=== PATIENT | female | born 1970 | race Caucasian/White ===

== ENCOUNTER → 2016-12-04 | Outpatient (CLI) | payer BC, OTHER ==
[~2016-12-04] MED LIST: ASPI-391 PO; B-COTAB18 PO; MTR600X PO; OXYC-57 PO; RANI150T3 PO
== END | disposition home or self-care (01) ==
LOC: C.PATHSPEC 17:33
PROVIDERS: ATTEND Obstetrics & Gynecology
DX: R93.8 Abnormal findings on diagnostic imaging of other specified body structures (principal)

== ENCOUNTER 2017-01-30 05:40 | Observation (INO) | payer BC ==
[2017-01-13 11:37] VITALS: BMI 44.0
[2017-01-13 11:59] LABS: BASO % 0.6 %; BASO ABS # 0.04 K/uL (0-0.2); COMPLETE YES; EOS % 4.1 %; HEMATOCRIT 38.9 % (37-47); IG% 0.2 %; LYMPH % 22.2 %; MEAN CELL VOLUME 82.4 fL (80-100); MEAN CORPUSCULAR HEMOGLOBIN 26.9 pg (25-34); MEAN CORPUSCULAR HGB CONC 32.6 g/dl (32-36); MEAN PLATELET VOLUME 9.1 fL (7.4-10.4); MONO % 7.6 %; NEUT % 65.3 %; PLATELET COUNT 340 K/uL (130-400); RED BLOOD COUNT 4.72 M/uL (4.2-5.4); WHITE BLOOD COUNT 6.31 K/uL (4.8-10.8)
--- NOTE | 2017-01-13 12:00 | PAT Medication Instructions ---
Service Date January 13, 2017. Current Home Medication List Zptboak-Ckojclwobiryy-Kijegqff (Excedrin Extra Strength), 2 TAB PO prn B-Complex Vitamins (Vitamin B Complex), 1 TAB PO QAM Ranitidine Hcl (Zantac), 150 MG PO PRN Medication Instructions For Your Scheduled Surgery Qllwboy-Ifoeezkrenqvr-Aqdffsgn (Excedrin Extra Strength), 2 TAB PO prn (patient will check with surgeon for instructions) - Hold the following medications the morning of surgery: B-Complex Vitamins (Vitamin B Complex), 1 TAB PO QAM - Take the following medications the morning of surgery with a sip of water: Ranitidine Hcl (Zantac), 150 MG PO PRN If you have any questions please call us at [phone] or [phone] ( Rachelle) or [phone]
[2017-01-13 13:27] LABS: BUN/CREATININE RATIO 13.9 (10-20); CALCIUM 8.9 mg/dl (8.5-10.1); CREATININE 0.82 mg/dl (0.60-1.20); POTASSIUM 4.1 mmol/L (3.5-5.1)
[2017-01-30] VITALS (8 sets, daily range): BP systolic 110–178; BP diastolic 66–86; PULSE 72–100; TEMP 36.2–37.1; O2SAT 92–99; Ht 165.1 cm; Wt 120.2 kg
[~2017-01-30] VITALS: Ht 165.1 cm; Wt 120.2 kg
[~2017-01-30 05:40] MED LIST changes: -MTR600X PO; -OXYC-57 PO
[2017-01-30] MEDS ORDERED: CEFAZOLIN 3000 MG/65 ML D5W 50 ML IV SCH (06:00)
[2017-01-30] MEDS ORDERED: LACTATED RINGER'S 1000ML 1,000 ML IV SCH ×3 (06:00→13:00)
[2017-01-30] MEDS ORDERED: MIDAZOLAM HCL 1 MG/ML 2ML VIAL ONE (06:58)
[2017-01-30] MEDS ORDERED: HYDROmorphone INJ 2 MG/ML SYR/VIAL ONE (06:58)
[2017-01-30] MEDS ORDERED: KETAMINE HCL INJ 50 MG/ML 10 ML VIAL ONE (06:58)
[2017-01-30] MEDS ORDERED: FENTANYL CITRATE INJ 50 MCG/1 ML 2 ML VIAL ONE (06:58)
--- NOTE | 2017-01-30 07:03 | History & Physical Bridge Note ---
H&P Re-Evaluation Bridge Note: I have examined the patient, reviewed the History & Physical and in the interval since the performance of the History & Physical I have noted the following changes of clinical significance: No changes noted
[2017-01-30] MEDS ORDERED: METHYLENE BLUE 0.5% 10 ML VIAL ONE (07:15)
[2017-01-30] MEDS ORDERED: BUPIVACAINE 0.5 % 5 MG/1 ML MPF 30ML VIAL ONE (07:15)
[2017-01-30 07:30] LABS: PREG INTERNAL NEGATIVE QC NEG CLEAR BACKGROUND; PREG INTERNAL POSITIVE QC POS CONTROL LINE
[2017-01-30] MEDS ORDERED: ONDANSETRON INJ 2 MG/ML 2 ML VIAL ONE ×2 (08:53→10:10)
[2017-01-30] MEDS ORDERED: PHENYLEPHRINE 100MCG/ML 5ML SYR ONE (08:53)
[2017-01-30] MEDS ORDERED: NEOSTIGMINE METHYLSULFATE 5 MG/5 ML SYR ONE (08:53)
[2017-01-30] MEDS ORDERED: DEXAMETHASONE SOD INJ 4 MG/ML VIAL ONE (08:53)
[2017-01-30] MEDS ORDERED: SUCCINYLCHOLINE 100MG/5ML SYR IV ONE (08:53)
[2017-01-30] MEDS ORDERED: CISATRACURIUM BESYLATE IV SOLN 2 MG/ML 10 ML VIAL ONE (08:53)
[2017-01-30] MEDS ORDERED: PROPOFOL IV EMULSION 10 MG/ML 20 ML VIAL IV ONE (08:53)
[2017-01-30] MEDS ORDERED: GLYCOPYRROLATE INJ 0.2 MG/ML VIAL ONE (08:53)
[2017-01-30] MEDS ORDERED: SODIUM CHLORIDE 0.9% INJ 10 ML VIAL ONE (08:54)
--- NOTE | 2017-01-30 10:11 | [facility] Post Operative Brief Note ---
Immediate Operative Summary Operative Date January 30, 2017. Pre-Operative Diagnosis Abnormal menses enlarged uterus thickened endometrium Post-Operative Diagnosis Same as preop Procedure(s) Performed Robotic-assisted Total Laparoscopic Hysterectomy, Bilateral Salpingo-oophorectomy, cystoscopy Surgeon Dr. Cobb [place] Press Operator Surgeon(s) none Estimated Blood Loss 70 cc Findings Enlarged uterus Specimens A: uterus, cervix, bilateral fallopian tubes and ovaries Drains Caruso Anesthesia General Complication(s) None Disposition Recovery Room / PACU
--- NOTE | 2017-01-30 10:12 | Discharge Instructions ---
Discharge Instructions Date of Service January 30, 2017. Admission Reason for Admission: Abnormal Menses, Enlarged Uterus Discharge Discharge Diagnosis / Problem: Menorrhagia Discharge Goals Goal(s): Routine recovery after surgery Activity Recommendations Activity Limitations: per Instructions/Follow-up section . Instructions / Follow-Up Instructions / Follow-Up POST OPERATIVE: BOWEL FUNCTION/MEDICATIONS: 1. Constipation pain and discomfort are the most common complaints 5-7 days after surgery. Points 2-6 address the things that can help. 2. Chewing gum can help stimulate the gut and help improve digestion and motility. 3. Milk of Magnesia 1-2 times per day until return of bowel function. 4. Colace is a stool softener that helps. Taking this 2-3 times per day until bowel function returns to normal is highly recommended. 5. Dulcolax is a laxative that may be used if several days have passed without a bowel movement. Alternatively Miralax may be used daily instead. 6. Drink plenty of fluids as this will also reduce constipation. 7. Narcotic pain medications will be prescribed by your physician. They are safe to use and we encourage you to use them. If you are not allergic, ibuprofen will also be prescribed. Many patients will be able to transition off of the narcotic medications to ibuprofen by postoperative day 3. ACTIVITY RECOMMENDATIONS: 1. Get plenty of rest and listen to your body. If you are tired, take a nap. 2. You may shower, but do not take a tub bath until you see your doctor at the 2 week post operative visit. 3. Absolutely NO intercourse and nothing in the vagina until you are examined by your doctor at the 6 week visit. At that visit it will be determined when such activities can be resumed. This can range from 6-12 weeks after your surgery depending on healing time. 4. The main physical activity in the first week should be walking. By the second week you can slowly increase activity. There are no limits on walking up and down stairs. 5. Do not lift more than 5-10 lbs for 4 weeks. Remember the "one-handed rule", i.e. if you can lift something with only one hand it's likely okay. 6. Minimize photocomposing keyboard operator like vacuuming and exercising for 4 weeks. "Overdoing it" can lead to incisions not healing, pain and vaginal bleeding , so again, listen to your body. 7. Driving can be resumed when you feel able. Do not drive within 24 hours of taking a narcotic medication. EXPECTATIONS: 1. Vaginal spotting, bleeding and discharge are common after surgery. There may even be an odor to the discharge which is often related to sutures used in the vagina. If you experience heavy vaginal bleeding, call the office number day or night [phone]. 2. Bladder discomfort is common after surgery from the catheter. This usually resolves in 1-2 weeks. 3. By the end of the 3rd or 4th week you should be feeling much better. It may take up to 6 weeks for your energy levels to return to normal. 4. Narcotic medications have side effects such as: dizziness, headache, nausea and/or vomiting. If you suspect your pain medication is causing problems, call our office and we may be able to prescribe an alternate medication. 5. The skin incisions are often covered with a liquid bandage. This will gradually peel off over time. CALL THE OFFICE IF YOU HAVE ANY OF THE FOLLOWIN. Temperature of 101 degrees or higher. 2. Severe abdominal or pelvic pain not relieved by pain medication. 3. Persistent nausea or vomiting. 4. Increased pain with urination or difficulty urinating. 5. Bright red bleeding that soaks more than 1 pad per hour. CONTACT PHONE NUMBERS: Main Office: [phone] Surgical Nurse: [phone] extension [phone] Avoid all tobacco products. If you need help to stop smoking, call [place] FREE QUITLINE at . This is a free call. Current Hospital Diet Patient's current hospital diet: Discharge Diet Recommended Diet: Regular Diet Procedures Procedures Performed: Robotic-assisted Total Laparoscopic Hysterectomy, Bilateral Salpingo-oophorectomy, cystoscopy Pending Studies Studies pending at discharge: no Medical Emergencies . Who to Call and When: Medical Emergencies: If at any time you feel your situation is an emergency, please call 911 immediately. . Non-Emergent Contact Non-Emergency issues call your: Diesel Engine Operator . . "Provider Documentation" section prepared by Maldonado Cobb. . VTE Core Measure Inpt VTE Proph given/why not?: Izzy Dumas, KINJAL's
[2017-01-30] MEDS ORDERED: OXYC-57 PO (10:13)
[2017-01-30] MEDS ORDERED: MTR600X PO (10:13)
[2017-01-30] MEDS ORDERED: IBUPROFEN 600 MG TAB PO PRN (10:15)
[2017-01-30] MEDS ORDERED: KETOROLAC TROMETHAMINE 30 MG/ML VIAL IV. PRN (10:15)
[2017-01-30] MEDS ORDERED: ZOLPIDEM TARTRATE 5 MG TAB PO PRN (10:15)
[2017-01-30] MEDS ORDERED: ONDANSETRON INJ 2 MG/ML 2 ML VIAL IV PRN ×2 (10:15→10:30)
[2017-01-30] MEDS ORDERED: ACETAMINOPHEN 325 MG TAB PO PRN (10:15)
[2017-01-30] MEDS ORDERED: BISACODYL 10 MG SUPP PR PRN (10:15)
[2017-01-30] MEDS ORDERED: MAGNESIUM HYDROXIDE SUSP 30 ML UDC PO PRN (10:15)
[2017-01-30] MEDS ORDERED: MEPERIDINE HCL 50 MG/ML CARP IV PRN ×2 (10:15)
[2017-01-30] MEDS ORDERED: SIMETHICONE 80 MG CHEW PO PRN (10:15)
[2017-01-30] MEDS ORDERED: OXYCODONE/ACETAMINOPHEN 5-325 TAB PO PRN ×2 (10:15)
[2017-01-30] MEDS ORDERED: HYDROmorphone INJ 1 MG/ML SYR IV PRN (10:30)
[2017-01-30] MEDS ORDERED: FLUMAZENIL 0.1 MG/1 ML 10 ML VIAL IV PRN (10:30)
[2017-01-30] MEDS ORDERED: PROMETHAZINE HCL INJ 12.5 MG in SODIUM CHLORIDE 0.9% 50ML 50 ML IV PRN ×2 (10:30→15:30)
[2017-01-30] MEDS ORDERED: ATROPINE SULFATE 0.1 MG/ML 5ML SYR IV PRN (10:30)
[2017-01-30] MEDS ORDERED: LABETALOL HCL IV 5 MG/ML 20ML IV PRN (10:30)
[2017-01-30] MEDS ORDERED: EpHEDrine SULFATE INJ 50 MG/ML AMP IV PRN (10:30)
[2017-01-30] MEDS ORDERED: NALOXONE HCL 0.4 MG/1 ML VIAL/CARP IV PRN (10:30)
[2017-01-30] MEDS ORDERED: IV FLUIDS COMPLETED PRN (11:00)
--- NOTE | 2017-01-30 11:25 | Anesthesiology Progress Note ---
Anesthesia Post Op Note Date & Time January 30, 2017 at 11:25 Vital Signs Pain Intensity: 0 Vital Signs Past 12 Hours Date Time Temp Pulse Resp B/P Pulse Ox O2 Delivery O2 Flow Rate FiO2 01/30/17 11:15 89 16 130/76 96 Nasal Cannula 3 01/30/17 11:00 86 18 117/73 96 Nasal Cannula 3 01/30/17 10:50 36.5 88 18 130/70 96 Nasal Cannula 3 01/30/17 10:40 84 18 120/60 99 Nasal Cannula 3 01/30/17 10:30 71 16 154/84 99 Mask 10 01/30/17 10:20 36.4 80 16 113/76 99 Mask 10 01/30/17 05:59 37.1 89 20 178/86 99 Room Air Notes Mental Status: alert / awake / arousable, participated in evaluation Pt Amnestic to Procedure: Yes Nausea / Vomiting: adequately controlled Pain: adequately controlled Airway Patency, RR, SpO2: stable & adequate BP & HR: stable & adequate Hydration State: stable & adequate Anesthetic Complications: no major complications apparent
--- NOTE | 2017-01-30 12:00 | OPERATIVE REPORT ---
DATE OF OPERATION: 01/30/2017 PREOPERATIVE DIAGNOSES: Menorrhagia, abnormal menses, enlarged uterus, pelvic pain. POSTOPERATIVE DIAGNOSES: Same. PROCEDURES: Robotically assisted total laparoscopic hysterectomy, bilateral salpingo-oophorectomy, cystoscopy. SURGEON: Dr. Cobb. COSMETOLOGIST APPRENTICE: None. ESTIMATED BLOOD LOSS: 70 mL. FINDINGS: Enlarged uterus. SPECIMENS: Uterus, cervix, bilateral ovaries. DRAINS: Caruso catheter. ANESTHETIC: General. COMPLICATIONS: None. DISPOSITION: Recovery room. OPERATION AND FINDINGS: PROCEDURE: Care was given a general anesthetic, prepped and draped in dorsal lithotomy position. IV Ancef given 3 grams preop. Bladder drained with a Caruso catheter, VCare sewn into her cervix in the usual fashion. Gloves changed and a supraumbilical incision made with scalpel. Using open Ted technique, we dissected down through the subcutaneous fat through the fascia, splitting the rectus muscles and entering the peritoneal cavity without difficulty. Blunt-tipped Ted trocar then placed. Balloon used to insufflate the tip of the trocar of the port sorely to allow stability and then CO2 gas used to insufflate the abdomen. FINDINGS: Upper abdomen normal, no sign of visceral organ injury or abnormalities. Deep Trendelenburg position then obtained. Findings absent tubes as the patient did describe bilateral salpingectomies before, anterior fibroid, enlarged uterus. There were some adhesions on the left side wall of the epiploicae of the colon to the left sidewall. Otherwise, no abnormal findings. There was a cyst on the left ovary as well, but otherwise appeared normal. Three robotic ports placed, 2 on the right, 1 on the left. Arm #1 was monopolar arianne, arm #2 was bipolar [place], which was eventually converted 2 bipolar fenestrated. Arm #3 was ProGrasp. Using deep Trendelenburg and uterine VCare manipulator, we identified the ureter, first on left and right sides. We then made a window into the broad ligament on the left side. The patient wished her ovaries out so we made a window into the medial leaf of the broad ligament as well to isolate the ovarian vessels. These were then coagulated proximal to the ovary and then cut. The ovaries were then skeletonized away from the wall. The round ligament was then coagulated and then cut as well. It should be noted the patient was very vascular and it took conversion to the fenestrated from the bipolar [place] to coagulate the uteroovarian blood supply. We skeletonized the vessels on the left side, dissected the bladder flap carefully, identified the VCare cup and then coagulated the uterine vessels on the left side. We stayed well away from the ureter and then these were cut. The exact same process was continued on the right. When the bladder flap was fully dissected away sharply I was unable to make an anterior colpotomy and then continuing the colpotomy to remove the cervix from the vagina staying medial of our uterine vessel ligations. Uterus was then able to be pulled into the vagina and removed and then a sponge and a glove was placed for pneumoperitoneum. At this stage, hemostasis was excellent. IV methylene blue given by anesthesia. We then performed the cuff closure by doing instrument exchange, arm #1 became the naseem needle wheelchair driver, arm #2 became the cobra, 12 inch 2-0 90-day V-Loc suture was then passed through the accessory port. Cuff was closed in the usual fashion, ensuring at least 1 cm bites of vaginal mucosa taking care to avoid injury to bladder. We closed from left to right, back right to left. Suture was then cut so there was no tail and needle removed through the accessory port. At this stage after generous irrigation and suction, hemostasis was excellent. The uterus had been removed from the vagina and bleeding was minimal there. The Caruso catheter was removed. Cystoscopy was performed and I was able to visualize there was no sign of injury to the bladder and there were good strong jets of bluish-green dye from left and right ureter openings. Cystoscope removed and a new Caruso catheter placed. Gloves changed and I then resume back to the robot. We then used Tisseel applied to all the pedicles, ovarian and the uterine pedicles and the cuff. At this stage, we then removed the instruments under direct visualization. Ports removed. Robot undocked, gas allowed to escape. Incisions injected with 0.5% Marcaine. Fascia closed with 0 Vicryl. Same process in the left upper quadrant port along with the umbilical port, 4-0 subcuticular Monocryl closures and Dermabond. Sponge and instrument counts correct. Estimated blood loss 70 mL. I attest to the content of the Intraoperative Record and any orders documented therein. Any exceptio ns are noted below.
[2017-01-30] MEDS ORDERED: IBUPROFEN 600 MG TAB ONE (12:33)
[2017-01-30] MEDS ORDERED: TISSEEL FIBRIN SEALANT 4ML TOP ONE (12:39)
[2017-01-30] MEDS ORDERED: LARYING-O-JET KIT (LTA) EXT ONE ×2 (13:00)
[2017-01-30] MEDS ORDERED: PROMETHAZINE HCL INJ 25 MG in SODIUM CHLORIDE 0.9% 50ML 50 ML IV PRN (15:30)
[2017-01-30] MEDS ORDERED: DOCUSATE SODIUM 100 MG CAP PO SCH (21:00)
--- NOTE | 2017-02-03 10:37 | DISCHARGE SUMMARY ---
HISTORY OF PRESENT ILLNESS: Yoli had a total laparoscopic hysterectomy and bilateral salpingo-oophorectomy on 01/30/2017. Her course in hospital was unremarkable. Later in the day, she met discharge criteria. She was ambulating, had tolerating a full diet, had voided without the Caruso catheter. Pain was well controlled. She had no bleeding and extremity pain was nonexistent. PHYSICAL EXAMINATION: Her vital signs were stable. She was afebrile. IMPRESSION AND PLAN: Yoli had a laparoscopic hysterectomy. Several hours later she met discharge criteria and was discharged home.
== END 2017-01-30 18:00 | disposition home or self-care (01) ==
LOC: ENRESERVTM → ENRESERVDT → C.ACU 05:40 → C.MS4N 06:56
PROVIDERS: ADMIT Obstetrics & Gynecology; ATTEND Obstetrics & Gynecology
DX: N92.0 Excessive and frequent menstruation with regular cycle (principal); N80.0 Endometriosis of uterus; N85.2 Hypertrophy of uterus; R93.8 Abnormal findings on diagnostic imaging of other specified body structures; Z87.891 Personal history of nicotine dependence
CPT/HCPCS: 58571; S2900

== ENCOUNTER → 2017-02-13 | Outpatient (CLI) | payer BC ==
[~2017-02-13] MED LIST changes: +MTR600X PO; +OXYC-57 PO
[2017-02-13 12:31] LABS: URINE APPEARANCE CLEAR (CLEAR); URINE BILIRUBIN NEG (NEG); URINE COLOR YELLOW; URINE NITRITE NEG (NEG); URINE PH 5.5 (4.5-7.5); URINE SPECIFIC GRAVITY 1.011 (1.000-1.030); UROBILINOGEN NEG (NEG); ZZUR CULT IF INDIC CLEAN CATCH NO
[2017-02-13 12:44] LABS: MANUAL MICROSCOPIC REQUIRED? NO; REVIEW REQ? NO
== END | disposition home or self-care (01) ==
LOC: C.LABSPEC 11:37
PROVIDERS: ATTEND Obstetrics & Gynecology
DX: R39.9 Unspecified symptoms and signs involving the genitourinary system (principal)

== ENCOUNTER 2017-12-18 20:38 | Emergency (ER) | payer BC ==
[~2017-12-18] VITALS: Ht 165.1 cm; Wt 118.9 kg
[2017-12-18 20:45] VITALS: TEMP 36.8; Ht 165.1 cm; Wt 118.9 kg
[2017-12-18 22:00] VITALS: O2SAT 95
--- NOTE | 2017-12-18 22:21 | DIAGNOSTIC IMAGING REPORT ---
CHEST ONE VIEW PORTABLE CLINICAL HISTORY: 47 years-old Female presenting with CHEST PAIN. TECHNIQUE: Portable upright AP view of the chest was obtained. COMPARISON: None. FINDINGS: Cardiac silhouette mildly enlarged. No focal opacity. No large effusion or pneumothorax. Osseous structures normal. IMPRESSION: 1. Cardiomegaly. No other convincing evidence of acute cardiopulmonary disease. Electronically signed by: Sarmad Ulloa M.D. 12/18/2017 10:20 PM Dictated Date/Time: 12/18/2017 10:19 PM
[2017-12-18 22:28] LABS: BASO % 0.3 %; BASO ABS # 0.02 K/uL (0-0.2); EOS % 5.3 %; EOS ABS # 0.32 K/uL (0-0.5); HEMATOCRIT 37.5 % (37-47); HEMOGLOBIN 12.2 g/dL (12.0-16.0); IG# 0.02 K/uL (0.00-0.02); LYMPH ABS # 1.58 K/uL (1.2-3.4); MEAN CELL VOLUME 81.2 fL (80-100); MEAN CORPUSCULAR HEMOGLOBIN 26.4 pg (25-34); MEAN CORPUSCULAR HGB CONC 32.5 g/dl (32-36); MONO % 8.4 %; MONO ABS # 0.51 K/uL (0.11-0.59); NEUT % 59.7 %; NEUT ABS # 3.63 K/uL (1.4-6.5); PLATELET COUNT 298 K/uL (130-400); RED CELL DISTRIBUTION WIDTH CV 14.1 % (11.5-14.5); RED CELL DISTRIBUTION WIDTH SD 41.8 fL (36.4-46.3); WHITE BLOOD COUNT 6.08 K/uL (4.8-10.8)
[2017-12-18 22:44] LABS: ALBUMIN 3.9 gm/dl (3.4-5.0); ALT/SGPT 28 U/L (12-78); BLOOD UREA NITROGEN 15 mg/dl (7-18); CARBON DIOXIDE 24 mmol/L (21-32); CREATININE 0.92 mg/dl (0.60-1.20); GLUCOSE 99 mg/dl (70-99); LIPASE 376 U/L (73-393); POTASSIUM 3.9 mmol/L (3.5-5.1); SODIUM 140 mmol/L (136-145)
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
[2017-12-18 22:49] LABS: ALKALINE PHOSPHATASE 97 U/L (45-117); AST/SGOT 24 U/L (15-37); TOTAL PROTEIN 7.2 gm/dl (6.4-8.2)
[2017-12-18] MEDS ORDERED: OPTIRAY 320 IV PRN (23:15)
[2017-12-19 01:20] VITALS: BP 161/103; PULSE 70; O2SAT 95
--- NOTE | 2017-12-19 01:35 | EMERGENCY ROOM VISIT NOTE ---
History First contact with patient: 21:24 Chief Complaint: LEG PAIN,LEG INJURY Stated Complaint: SWOLLEN/BRUISED LEG,SLIGHT CHEST PAIN History of Present Illness The patient is a 47 year old female who presents to the Emergency Room with complaints of right calf pain and swelling after she [place] the airport [place] gait. This happened several days ago. She has flown recently. She does not smoke; no control. No family history of blood clots. There is a family history of heart disease of her father in his 60s. Patient states she felt quite anxious today and developed a few episodes of split- second chest pains. Nothing prolonged or exertional. Patient denies dyspnea, abdominal pain, fever, chills, numbness, tingling, diaphoresis, back pain, history of heart disease or blood clots. Review of Systems An 10 system review of systems was completed with positives and pertinent negatives listed in the HPI. Past Medical/Surgical History Medical Problems: (1) Enlarged uterus (2) Menorrhagia (3) Pelvic pain Hysterectomy, GERD, tonsillectomy Social History Smoking Status: Never Smoker Smokeless Tobacco Use: No Drug Use: none Marital Status: Housing Status: lives with family Occupation Status: employed Current/Historical Medications Scheduled Ranitidine Hcl (Zantac), 150 MG PO BID Physical Exam Vital Signs Date Time Temp Pulse Resp B/P (MAP) Pulse Ox O2 Delivery O2 Flow Rate FiO2 12/18/17 23:48 96 18 183/91 97 Room Air 12/18/17 22:31 159/106 12/18/17 22:30 74 10 93 Room Air 12/18/17 22:04 92 12/18/17 22:00 97 22 166/98 95 Room Air 12/18/17 22:00 95 Room Air 12/18/17 20:45 36.8 86 18 210/109 97 Room Air Physical Exam VITALS: Vitals are noted on the nurse's note and reviewed by myself. Vital signs hypertensive. GENERAL: Pleasant female anxious appearing, in no acute distress, nondiaphoretic , well-developed well-nourished. SKIN: The skin was without rashes, erythema, edema, or bruising. There is no tenting of the skin. Capillary reflex less than 2 seconds. HEAD: Normocephalic atraumatic. EARS: External auditory canals clear, tympanic membranes pearly garza without erythema or effusion bilaterally. EYES: Pupils equal round and reactive to light and accommodation. Conjunctivae without injection, sclerae without icterus. Extraocular movements intact. NOSE: Patent, turbinates without inflammation or discharge. MOUTH: Mucous membranes moist. Pharynx without erythema or exudate. Uvula midline. Airway patent. Tongue does not deviate. NECK: Supple without nuchal rigidity. No lymphadenopathy. No thyromegaly. Cervical spine is nontender. No JVD. HEART: Regular rate and rhythm without murmurs gallops or rubs. LUNGS: Clear to auscultation bilaterally without wheezes, rales or rhonchi. No retractions or accessory muscle use. ABDOMEN: Positive bowel sounds x 4. Normal tympanic percussion. Soft, nontender, without masses or organomegaly. Ferreira sign negative. No guarding or rebound tenderness. No CVA tenderness MUSCULOSKELETAL: No muscle atrophy, erythema, noted. Right outer lateral mayo with contusion present tender to palpation with contusion draining down the leg. Pedal pulses +2 equal and present bilaterally. Right calf tenderness. NEURO: Patient was alert and oriented to person place and time. Normal sensation to light and sharp touch. No focal neurological deficits. Medical Decision & Procedures Laboratory Results 12/18/17 21:50 Red Blood Count 4.62, Mean Corpuscular Volume 81.2, Mean Corpuscular Hemoglobin 26.4, Mean Corpuscular Hemoglobin Concent 32.5, Mean Platelet Volume 9.0, Neutrophils (%) (Auto) 59.7, Lymphocytes (%) (Auto) 26.0, Monocytes (%) (Auto) 8.4, Eosinophils (%) (Auto) 5.3, Basophils (%) (Auto) 0.3, Neutrophils # (Auto) 3.63, Lymphocytes # (Auto) 1.58, Monocytes # (Auto) 0.51, Eosinophils # (Auto) 0.32, Basophils # (Auto) 0.02 12/18/17 21:50 Test 12/18/17 21:50 12/18/17 22:02 12/19/17 00:27 White Blood Count 6.08 K/uL (4.8-10.8) Red Blood Count 4.62 M/uL (4.2-5.4) Hemoglobin 12.2 g/dL (12.0-16.0) Hematocrit 37.5 % (37-47) Mean Corpuscular Volume 81.2 fL (80-100) Mean Corpuscular Hemoglobin 26.4 pg (25-34) Mean Corpuscular Hemoglobin Concent 32.5 g/dl (32-36) Platelet Count 298 K/uL (130-400) Mean Platelet Volume 9.0 fL (7.4-10.4) Neutrophils (%) (Auto) 59.7 % Lymphocytes (%) (Auto) 26.0 % Monocytes (%) (Auto) 8.4 % Eosinophils (%) (Auto) 5.3 % Basophils (%) (Auto) 0.3 % Neutrophils # (Auto) 3.63 K/uL (1.4-6.5) Lymphocytes # (Auto) 1.58 K/uL (1.2-3.4) Monocytes # (Auto) 0.51 K/uL (0.11-0.59) Eosinophils # (Auto) 0.32 K/uL (0-0.5) Basophils # (Auto) 0.02 K/uL (0-0.2) RDW Standard Deviation 41.8 fL (36.4-46.3) RDW Coefficient of Variation 14.1 % (11.5-14.5) Immature Granulocyte % (Auto) 0.3 % Immature Granulocyte # (Auto) 0.02 K/uL (0.00-0.02) Anion Gap 8.0 mmol/L (3-11) Est Creatinine Clear Calc Drug Dose 96.5 ml/min Estimated GFR () 85.3 Estimated GFR (Non- 73.6 BUN/Creatinine Ratio 16.5 (10-20) Calcium Level 9.0 mg/dl (8.5-10.1) Total Bilirubin 0.4 mg/dl (0.2-1) Direct Bilirubin < 0.1 mg/dl (0-0.2) Aspartate Amino Transf (AST/SGOT) 24 U/L (15-37) Alanine Aminotransferase (ALT/SGPT) 28 U/L (12-78) Alkaline Phosphatase 97 U/L (45-117) Troponin I < 0.015 ng/ml (0-0.045) Total Protein 7.2 gm/dl (6.4-8.2) Albumin 3.9 gm/dl (3.4-5.0) Lipase 376 U/L (73-393) Bedside D-Dimer > 450 ng/mlFEU (0-450) Bedside Troponin I < 0.030 ng/ml (0-0.045) ED Course Prior records/ancillary studies reviewed. Triage Nursing notes reviewed. Additional history obtained from family The patient's history was concerning for leg pain and bruising with chest pain. Differential diagnosis: Etiologies such as DVT, contusion, fracture, cardiac ischemia, aortic dissection , pulmonary embolism, pneumonia, pneumothorax, musculoskeletal, infections, pericarditis, myocarditis, esophageal rupture, gastrointestinal, as well as others were entertained. Physical examination: As above. ER treatment provided: Patient was observed On reassessment the patient felt better. Diagnostic interpretation by me: The electrocardiogram was negative for pathologic change. Normal sinus, normal intervals, no acute ST-T wave changes, rate of 87. Impression normal sinus rhythm interpreted by myself The labs revealed 2 negative troponins greater than 2 hours apart. Elevated d- dimer. Imaging studies: Chest x-ray reviewed and read by radiology CTA CHEST: No evidence of pulmonary embolism. No thoracic aortic aneurysm or dissection. Mild ground-glass opacities in the lower lobes. Findings are favored to represent atelectasis although mild congestive change or infiltrates cannot be entirely excluded. Correlate clinically. Scattered bilateral pulmonary nodules measuring up to 6 mm. Nodules are nonspecific and may be due to infectious, inflammatory, or metastatic/neoplastic process. If no prior CT is available for comparison, follow-up chest CT in 3-6 months is recommended to assess for stability. Mild cardiomegaly. No pericardial effusion. Tiny hiatal hernia. Radiologist: Olivia Cai MD Ultrasound negative for DVT per radiology Tib-fib x-ray negative for fracture or dislocation per my interpretation HEART SCORE: Hx: high/mod/low suspicion: 0 ECG: ST depression/nonspecific changes/normal: 0 Age: Greater than 65/45-64/less than 45: 0 Risk factors: (Hypertension, hyperlipidemia, diabetes, coronary disease, tobacco use, cocaine use): 1 Troponin: Greater than 2 times normal limits/1-2 times normal limits/normal: 0 Total: 1 Exam and history seem consistent with right lower leg contusion with split- second chest pains most likely related to anxiety and [place] her leg at the airport. Patient had no DVT or PE. She has some incidental lung nodules and was advised to follow-up with a lung nodule clinic in the family care doctor for further workup on this. Information was given to her by the case management for contact of the lung nodule clinic. Patient had 2 negative troponins. Normal EKG. CTA was negative for PE. Heart score was 1. Patient was advised to return to the ER meaty for chest pain, difficulty breathing, worsening signs or symptoms or as needed. She is advised to monitor blood pressure and follow-up with family care for it. By the evaluation outlined above emergent etiologies such as cardiac ischemia, aortic dissection, pulmonary embolism, pneumonia, pneumothorax, infections, pericarditis, myocarditis, gastrointestinal, as well as others were deemed relatively unlikely. The pt informed about the findings as listed above. All questions were answered and pleased with the treatment. Return instructions were outlined and the patient was discharged in stable condition. Case reviewed with my attending Referral: The patient was referred back to primary care physician and lung nodule clinic for follow-up in 2 to 3 days for a recheck of the current condition. The chart was completed utilizing [employer] Speech voice recognition software. Grammatical errors, random word insertions, pronoun errors, and incomplete sentences are an occassional consequence of this system due to software limitations, ambient noise, and hardware issues. Any formal questions or concerns about the content, text, or information contained within the body of this dictation should be directly addressed to the physician product development assistant for clarification. Medical Decision As above Medication Reconcilliation Current Medication List: was personally reviewed by me Blood Pressure Screening Patient's blood pressure: Elevated blood pressure Blood pressure disposition: Elevated BP felt to be situational Impression Primary Impression: Lung nodules Additional Impressions: Chest pain Contusion of right lower leg Departure Information Dispostion Home / Self-Care Condition GOOD Forms HOME CARE DOCUMENTATION FORM, IMPORTANT VISIT INFORMATION Patient Instructions Chest Pain - [facility], [facility], ED Contusion Lower Ext Additional Instructions Your CT scan shows lung nodules. You need follow-up for this. Please contact the lung nodule clinic as instructed by my case management. Your blood pressure is high. Follow-up with family care for this. Your leg contusion can take up to 2 weeks to resolve. Ibuprofen(Motrin, Advil) may be used for fever or pain. Use 600mg every six hours as needed. Take with food. Avoid using more than 2400mg in a 24 hour period. Do not use 2400mg per day for more than three consecutive days without physician direction. Prolonged inappropriate use can lead to stomach upset or ulcers. (AND/OR) Acetaminophen(Tylenol) may be used for fever or pain. Use 1000mg every six hours as needed. Avoid using more than 3000mg in a 24 hour period. Rest and drink plenty of fluids as tolerated. Continue current medications. Avoid strenuous activities and anything that worsens your pain. Resume normal activities once your symptoms resolve. Return to the ER immediately for worsening or persistent chest pain, abdominal pain, vomiting, fevers, chest pains, difficulty breathing, worsening of your condition, or as needed. Follow up with your primary physician in 2-3 days for a recheck of your current condition. Problem Qualifiers Additional Impressions: Chest pain Chest pain type: unspecified Qualified Codes: R07.9 - Chest pain, unspecified
--- NOTE | 2017-12-19 06:03 | DIAGNOSTIC IMAGING REPORT ---
ULTRASOUND VENOUS DOPPLER LWR EXT BILA CLINICAL HISTORY: Bilateral leg swelling. Recent travel history. COMPARISON STUDY: No previous studies for comparison. FINDINGS: Real-time and color flow Doppler imaging were performed. Flow was seen within the femoral, popliteal and calf veins with no intraluminal thrombus demonstrated. The saphenous vein is patent. IMPRESSION: No evidence of lower extremity DVT. Electronically signed by: Wilfredo Gutierrez M.D. 12/19/2017 6:02 AM Dictated Date/Time: 12/19/2017 6:01 AM
--- NOTE | 2017-12-19 06:36 | DIAGNOSTIC IMAGING REPORT ---
CT ANGIOGRAM OF THE CHEST CLINICAL HISTORY: Atypical chest pain. Positive d-dimer. Recent travel history. COMPARISON STUDY: Chest x-ray dated 12/18/2017 TECHNIQUE: Following the IV administration of 88 mL of [id number]-[id number], CT angiogram of the thorax was performed from the thoracic inlet to the lung bases utilizing the pulmonary embolus protocol. Images are reviewed in the axial, sagittal, and coronal planes. IV contrast was administered without complication. MIP imaging was performed. A dose lowering technique was utilized adhering to the principles of ALARA. CT DOSE: 625.94 mGy.cm FINDINGS: There are borderline enlarged hilar lymph nodes. There is no pathologic mediastinal or axillary lymphadenopathy. There was no evidence of thoracic aortic dilatation. There were no pulmonary artery filling defects to indicate acute pulmonary embolism. No pleural effusions are visualized. There is no focal pulmonary consolidation. Lower lobe groundglass opacities with a slight mosaic distribution likely represent atelectasis with air trapping. There are in excess of 10 bilateral pulmonary nodules. The largest measures approximately 8 mm. There is a 1 cm left lobe thyroid nodule. IMPRESSION: 1. No evidence of acute pulmonary embolism 2. Borderline enlarged hilar lymph nodes 3. Multiple bilateral nodules measuring up to 8 mm in diameter. 3-[address] follow-up is recommended. Please refer to below summary of Fleischner criteria recommendations for follow-up of incidental CT nodules (Sean Monge, Guidelines for management of small pulmonary nodules detected on CT scans: A statement from the Fleischner Society, Radiology 237: [phone].) SOLID NODULES Solitary nodule size: <6 mm * low risk patients: no follow-up needed * high risk patients: optional CT at 12 months Solitary nodule size: 6-8 mm * low risk patients: follow-up at 6-12 months, then consider further follow-up at 18-24 months * high risk patients: initial follow-up CT at 6-12 months and then at 18-24 months if no change Solitary nodule size: >8 mm * either low or high risk patients - consider follow-up CT at 3 months, and/or CT-PET, and/or biopsy Multiple nodules size: <6 mm * low risk patients: no routine follow-up * high risk patients: optional CT at 12 months Multiple nodules size: 6-8 mm * low risk patients: follow-up at 3-6 months, then consider further follow-up at 18-24 months * high risk patients: follow-up at 3-6 months, then at 18-24 months if no change Multiple nodules size: >8 mm * low risk patients: follow-up at 3-6 months, then consider further follow-up at 18-24 months * high risk patients: follow-up at 3-6 months, then at 18-24 months if no change Note: newly detected indeterminate nodule in persons 35 years of age or older. * low risk patients: minimal or absent history of smoking and/or other known risk factors * high risk patients: history of smoking or of other known risk factors (e.g. first degree relative with lung cancer, or exposure to asbestos, radon, uranium) * if a nodule up to 8 mm is partly solid or is ground glass further follow-up is required after 24 months to exclude possible slow growing adenocarcinoma (VIVIAN) SUBSOLID NODULES Solitary pure ground-glass nodule * nodule size <6 mm - no CT follow-up required * nodule size >=6 mm - follow-up CT at 6-12 months, then every 2 years until 5 years Solitary part-solid nodule * nodule size <6 mm - no CT follow-up required * nodule size >=6 mm - follow-up CT at 3-6 months. If unchanged, and solid component remains <6 mm, then annual follow-up for 5 years Multiple subsolid nodules * nodule size <6 mm - follow-up CT at 3-6 months, consider further follow-up at 2 and 4 years if stable * nodule size >=6 mm - follow-up CT at 3-6 months, subsequent management based on the most suspicious nodule(s) Electronically signed by: Wilfredo Gutierrez M.D. 12/19/2017 6:35 AM Dictated Date/Time: 12/19/2017 6:26 AM
== END 2017-12-19 01:10 | disposition home or self-care (01) ==
LOC: C.EDB 20:40
DX: R91.8 Other nonspecific abnormal finding of lung field (principal); R07.9 Chest pain, unspecified; S80.11XA Contusion of right lower leg, initial encounter; W22.8XXA Striking against or struck by other objects, initial encounter; Y92.520 Airport as the place of occurrence of the external cause; K21.9 Gastro-esophageal reflux disease without esophagitis; Z90.710 Acquired absence of both cervix and uterus

== ENCOUNTER → 2018-03-29 | Outpatient (CLI) | payer BC ==
[~2018-03-29] MED LIST changes: -ASPI-391 PO; -B-COTAB18 PO; -MTR600X PO; -OXYC-57 PO
--- NOTE | 2018-03-29 12:18 | DIAGNOSTIC IMAGING REPORT ---
(CHEST) THORAX WITHOUT CLINICAL HISTORY: MULTIPLE BILATERAL PULMONARY NODULES COMPARISON STUDY: 12/18/2017 CT DOSE: 687.73 mGycm TECHNIQUE: CT of the thorax was performed from the thoracic inlet to the lung bases. Images are reviewed in the axial, sagittal, and coronal planes. IV contrast was not administered for this examination. A dose lowering technique was utilized adhering to the principles of ALARA. FINDINGS: Thyroid: There is a persistent 1 cm left lobe thyroid nodule. Thoracic aorta: The thoracic aorta is normal in course and caliber, noting standard 3 vessel arch anatomy. Heart: The heart is normal in size and configuration, without pericardial effusion. Lungs and pleural spaces: There are no pleural effusions. There is no focal pulmonary consolidation. Again evident are multiple bilateral pulmonary nodules numbering in excess of 10. The nodules appear stable to slightly diminished in size when compared the prior study. The largest currently measures 6 mm. Mediastinum: There is no mediastinal lymphadenopathy. Li: There is no evidence of pathologic hilar adenopathy given the limitations of a noncontrast study Axilla: There is no evidence of pathologic axillary lymphadenopathy Upper abdomen: Partially visualized upper abdominal viscera is within normal limits. Skeletal structures: There are no lytic or blastic osseous lesions. IMPRESSION: 1. Persistent multiple bilateral pulmonary nodules measuring in excess of 10. The nodules appear stable to slightly diminished in size when compared with the prior study. A 12-15 month follow-up CT scan is recommended. Electronically signed by: Wilfredo Gutierrez M.D. 03/29/2018 12:17 PM Dictated Date/Time: 03/29/2018 12:08 PM
== END | disposition home or self-care (01) ==
LOC: C.CTS 10:43
PROVIDERS: ATTEND Nurse Practitioner Family
DX: R91.8 Other nonspecific abnormal finding of lung field (principal)